=== PATIENT | female | born 1960 | race Caucasian/White ===

== ENCOUNTER → 2016-09-24 | Outpatient (CLI) | payer BC ==
--- NOTE | 2016-09-24 08:52 | REPMRS ---
Patient History The patient states she had a clinical breast exam in 09/18 Family history of breast cancer in sister at age 50 or over, colorectal cancer in mother at age 50 or over, breast cancer in maternal aunt, and breast cancer in paternal aunt. 2 benign excisional biopsies of the left breast. Digital Woman Screen Mammo: September 24, 2016 - Exam #: [id number] Bilateral CC and MLO view(s) were taken. Technologist: Manju Lugo, Technologist Prior study comparison: September 22, 2015, digital woman screen mammo performed at [facility]. September 21, 2014, digital woman screen mammo performed at [facility]. September 17, 2013, digital woman screen mammo performed at [facility]. FINDINGS: There are scattered fibroglandular densities. There has been no change in the appearance of the mammogram from the prior studies. There is a mild amount of scattered fibroglandular density which is fairly symmetric. There is no interval development of dominant mass, architectural distortion, or clustered microcalcification suggestive of malignancy. ASSESSMENT: BI-RADS/ACR category 1 mammogram. Negative. Recommendation Routine screening mammogram in 1 year (for women over age 40). This mammogram was interpreted with the aid of an FDA-approved computer-aided dectection system. Electronically Signed By: Jef Rosa MD 09/24/16 [id number]
== END ==
LOC: M WHC 07:48
PROVIDERS: ATTEND Nurse Practitioner Women's Health
DX: Z12.31 Encounter for screening mammogram for malignant neoplasm of breast (principal)

== ENCOUNTER → 2017-09-25 | Outpatient (CLI) | payer BC | LOC: M WHC 07:55 | DX: Z12.31 Encounter for screening mammogram for malignant neoplasm of breast (principal); Z80.3 Family history of malignant neoplasm of breast | CPT/HCPCS: 77067 ==

== ENCOUNTER → 2017-09-25 | Outpatient (CLI) | payer BC | LOC: M WHC 08:01 | DX: M85.80 Other specified disorders of bone density and structure, unspecified site (principal) | CPT/HCPCS: 77080 ==